=== PATIENT | male | born 1975 | race Caucasian/White ===

== ENCOUNTER 2016-08-14 11:12 | Day surgery (SDC) | payer OTHER ==
[2016-08-14] MEDS ORDERED: LIDO/EPI 1% **Not for Epidural 20 ML MDV ONE (12:37)
[2016-08-14] MEDS ORDERED: ROCURONIUM 50 MG/5 ML VIAL ONE (12:57)
[2016-08-14] MEDS ORDERED: LIDOCAINE 2% 100 MG/5 ML SYR ONE (12:57)
[2016-08-14] MEDS ORDERED: DEXAMETHASONE 4 MG/ML VIAL ONE (12:57)
[2016-08-14] MEDS ORDERED: PROPOFOL 200 MG/20 ML VIAL ONE (12:57)
[2016-08-14] MEDS ORDERED: fentaNYL 250 MCG/5 ML INJ ONE (12:57)
[2016-08-14] MEDS ORDERED: ONDANSETRON 4 MG/2 ML VIAL ONE (12:57)
[2016-08-14] MEDS ORDERED: MIDAZOLAM 2 MG/2 ML VIAL ONE (13:13)
[2016-08-14] MEDS ORDERED: ceFAZolin 2 GM/DEXTROSE 100 ML IV ONE (13:30)
[2016-08-14] MEDS ORDERED: fentaNYL 100 MCG/2 ML INJ ONE (15:03)
[2016-08-14] MEDS ORDERED: HYDROmorphONE/DILAUDID 1 MG/ML SYR ONE (15:13)
[2016-08-14] MEDS ORDERED: OXYCODONE/APAP 5/325 TAB ONE (15:53)
--- NOTE | 2016-08-15 01:06 | GOP ---
[f rep st] OPERATIVE REPORT DATE OF OPERATION: 08/14/2016 SURGEON: Yaima Corona MD ANESTHESIA: General endotracheal. PREOPERATIVE DIAGNOSIS: Deviated nasal septum and inferior turbinate hypertrophy. POSTOPERATIVE DIAGNOSIS: Deviated nasal septum and inferior turbinate hypertrophy. PROCEDURE PERFORMED: 1. Septoplasty. 2. Inferior turbinate reduction. FINDINGS: ESTIMATED BLOOD LOSS: 40 cc. INDICATIONS: This is a 41-year-old male with severe obstructive sleep apnea with an AHI of 88, who has been using CPAP successfully, except he does have persistent nasal obstruction and difficulty br eathing through his nose. He has therefore elected for surgical correction. DESCRIPTION OF PROCEDURE: After informed consent, the patient was brought back to operating room, p laced in supine position. General endotracheal anesthesia obtained. Table was rotated 180 degrees. The nose was injected with 10 cc of 1% lidocaine with epinephrine in the septum and inferior turbi nates, and 4 pledgets soaked in Afrin were inserted in bilateral nasal cavities. The patient was then prepped and draped in the usual fashion. Starting on the left side, a hemitran sfixion incision was created and a mucoperichondrial flap was raised about 1.5 cm back. D knife was used to make an incision in the septal cartilage, and the septal mucoperichondrium was raised on th e right side. The inferior strut of cartilage was then removed. A significant deviation in the max illary strut was then removed using an osteotome. The duplication of the cartilage was removed usin g a Marino elevator in the caudal. At this point, there was found to be good airway bilaterally. B ilateral inferior turbinates were reduced by making incision in the anterior head of the inferior tu rbinate. The ebookpie inferior turbinate 2.9 blade was used to remove the intramural tissue. The y were then outfractured bilaterally. At this point, a 4-0 chromic was used to close the septal inc ision, and 4-0 plain was then used to reapproximate bilateral mucoperichondrial flaps. OG tube was used to suction out gastric contents. The patient was awoken from anesthesia, extubated, and transf erred to the PACU in stable condition. COMPLICATIONS: None. /[id number]/MODL
== END 2016-08-14 19:07 | disposition home or self-care (01) ==
LOC: UNDOADMOB 11:12 → FSGY 11:12 → F3E 11:12 → EDSTATUS 13:00 → FSGY 19:07
PROVIDERS: ATTEND Otolaryngology
DX: J34.2 Deviated nasal septum (principal); J34.3 Hypertrophy of nasal turbinates; G47.33 Obstructive sleep apnea (adult) (pediatric)
CPT/HCPCS: J0690; J1100; J1170; J2001; J2250; J2405; J2704; J3010